=== PATIENT | male | born 1980 | race African-American/Black ===

== ENCOUNTER 2023-11-22 06:32 | Emergency (ER) | payer OTHER ==
[~2023-11-22] VITALS: Ht 182.9 cm; Wt 89.9 kg
[2023-11-22 09:39] LABS: BASO % 0.6 % (0.0-1.0); EOS # 0.1 10^3/uL (0.0-0.5); EOS % 1.6 % (0.0-3.0); HEMATOCRIT 45.2 % (42.0-52.0); HEMOGLOBIN 14.6 g/dl (13.5-17.5); LYMPH # 1.9 10^3/uL (1.5-5.0); LYMPH % 27.7 % (24.0-44.0); MEAN CORPUSCULAR HEMOGLOBIN 28.2 pg (27.0-33.0); MEAN CORPUSCULAR HGB CONC 32.3 g/dl (32.0-36.5); MEAN CORPUSCULAR VOLUME 87.3 fl (80.0-96.0); MONO # 0.7 10^3/uL (0.0-0.8); MONO % 10.5 % (2.0-8.0); NEUTROPHILS % 59.3 % (36.0-66.0); PLATELET COUNT, AUTOMATED 263 10^3/uL (150-450); RED BLOOD COUNT 5.18 10^6/uL (4.30-6.10); WHITE BLOOD COUNT 6.7 10^3/uL (4.0-10.0)
[2023-11-22 10:02] LABS: C REACTIVE PROTEIN QUANTITATIV < 0.40 MG/DL (<1.0)
[2023-11-22 10:03] LABS: BLOOD UREA NITROGEN 17 MG/DL (9-23); CALCIUM LEVEL 8.9 MG/DL (8.5-10.1); CARBON DIOXIDE LEVEL 24 MMOL/L (20-31); CHLORIDE LEVEL 108 MMOL/L (98-107); CREATININE FOR GFR 0.73 MG/DL (0.70-1.30); GLOMERULAR FILTRATION RATE > 60.0 (>60); GLUCOSE, FASTING 86 MG/DL (60-100); POTASSIUM SERUM 4.3 MMOL/L (3.5-5.1); SODIUM LEVEL 138 MMOL/L (136-145)
[2023-11-22 10:20] VITALS: TEMP 97.1
[2023-11-22] MEDS: NS 1,000 ML IV ONE (10:34)
[2023-11-22] MEDS: metroNIDAZOLE (FLAGYL) 500MG TABLET PO ONE (10:34)
[2023-11-22] MEDS: KETOROLAC 30 MG/ML 1ML VIAL IV ONE (10:35)
[2023-11-22] MEDS: cefTRIAXone SOD 2 GM in D5W MINI-BAG PLUS 50 ML IV ONE (10:43)
[2023-11-22] MEDS ORDERED: KETO10TAB PO (11:19)
[2023-11-22] MEDS ORDERED: LEVO1TAB40 PO (11:19)
[2023-11-22] MEDS ORDERED: METR-265 PO (11:19)
[2023-11-22 12:04] VITALS: BP 137/86; O2SAT 100
== END 2023-11-22 12:22 | disposition home or self-care (01) ==
LOC: M ED 06:32
DX: K02.9 Dental caries, unspecified (principal); J30.2 Other seasonal allergic rhinitis; F17.200 Nicotine dependence, unspecified, uncomplicated; Z88.0 Allergy status to penicillin
CPT/HCPCS: 80048; 85025; 86140; 96365; 96375; 99284; J0696; J1885